=== PATIENT | female | born 1995 | race Caucasian/White ===

== ENCOUNTER 2018-04-03 17:48 | Inpatient (IN) | payer OTHER ==
[~2018-04-03] VITALS: Ht 165.1 cm; Wt 101.9 kg
[2018-04-03] VITALS (281 sets, daily range): BP systolic 118–135; BP diastolic 68–79; PULSE 80–98; TEMP 98.7; O2SAT 97–100
[2018-04-03 18:35] LABS: ARTERIAL BLD GAS TCO2 CT 27.5; ARTERIAL BLOOD GAS BASE EXCESS 2.7 (-2-2); ARTERIAL BLOOD GAS HCO3 26.3 meq/L (22-26); ARTERIAL BLOOD GAS PCO2 37.6 mmHg (35-45); ARTERIAL BLOOD GAS pH 7.46 (7.35-7.45)
[2018-04-03 19:06] LABS: BASO % 0.4 % (0.0-2.0); EOS % 0.1 % (0-4.0); GRAN # 4.3 (1.4-6.5); HEMATOCRIT 41.9 % (37.0-47.0); HEMOGLOBIN 14.6 g/dl (12.5-16.0); LYMPH # 2.5 (1.2-3.4); MEAN CELL VOLUME 88 fl (80.0-100.0); MEAN CORPUSCULAR HEMOGLOBIN 31 pg (27.0-31.0); MEAN CORPUSCULAR HGB CONC 35 g/dl (33.0-37.0); MEAN PLATELET VOLUME 10.7 fl (7.4-10.4); MONO # 0.7 (0.1-0.6); MONO % 9.2 % (1.7-9.3); PLATELET COUNT 222 K/mm3 (130-400); RED BLOOD COUNT 4.76 M/mm3 (4.10-5.30); REDCELL DISTRIBUTION WIDTH-CV 12.5 % (11.5-14.5)
[2018-04-03 19:14] LABS: ALBUMIN 3.8 gm/dL (3.5-5.0); BILIRUBIN,TOTAL 0.8 mg/dL (0.0-1.0); CALCIUM 8.6 mg/dL (8.4-10.2); CREATININE, serum 0.67 mg/dL (0.52-1.25); MAGNESIUM 2.4 mg/dL (1.6-2.3); PHOSPHOROUS 3.3 mg/dL (2.5-4.5); POTASSIUM 3.1 mmol/L (3.4-5.0); TOTAL PROTEIN 6.8 gm/dL (6.4-8.2)
[2018-04-03 19:17] LABS: INR 1.2 (0.8-3.0); PROTHROMBIN TIME 13.5 SECONDS (9.7-12.8)
[2018-04-03 19:20] LABS: PARTIAL THROMBOPLASTIN TIME 36.6 SECONDS (26.0-37.0)
[2018-04-03 21:18] LABS: ARTERIAL BLD GAS O2 SATURATION 97.6 % (92-100); ARTERIAL BLD GAS TCO2 CT 26.7; ARTERIAL BLOOD GAS BASE EXCESS 3.2 (-2-2); ARTERIAL BLOOD GAS HCO3 25.7 meq/L (22-26); ARTERIAL BLOOD GAS PCO2 32.7 mmHg (35-45); ARTERIAL BLOOD GAS PO2 98.7 mmHg (80-100); ARTERIAL BLOOD GAS pH 7.51 (7.35-7.45)
[2018-04-03 22:37] LABS: CREATININE, serum 0.65 mg/dL (0.52-1.25); MAGNESIUM 2.4 mg/dL (1.6-2.3); PHOSPHOROUS 3.6 mg/dL (2.5-4.5); POTASSIUM 3.3 mmol/L (3.4-5.0)
[2018-04-04] VITALS (1284 sets, daily range): BP systolic 110–130; BP diastolic 51–89; PULSE 80–120; TEMP 97.9–100.1; O2SAT 91–100
[2018-04-04 00:41] LABS: ARTERIAL BLD GAS O2 SATURATION 98.4 % (92-100); ARTERIAL BLD GAS TCO2 CT 28.2; ARTERIAL BLOOD GAS BASE EXCESS 2.6 (-2-2); ARTERIAL BLOOD GAS PCO2 40.7 mmHg (35-45); ARTERIAL BLOOD GAS PO2 140.6 mmHg (80-100); ARTERIAL BLOOD GAS pH 7.44 (7.35-7.45)
[2018-04-04 00:53] LABS: CREATININE, serum 0.66 mg/dL (0.52-1.25); MAGNESIUM 2.4 mg/dL (1.6-2.3); PHOSPHOROUS 3.6 mg/dL (2.5-4.5); POTASSIUM 3.4 mmol/L (3.4-5.0)
[2018-04-04 03:33] LABS: PH 9 (5-8); SQUAMOUS EPITHELIAL 0-2 /hpf; URINE APPEARANCE Hazy; URINE BACTERIA Rare /hpf; URINE BILIRUBIN Negative (NEGATIVE); URINE BLOOD Negative (NEGATIVE); URINE COLOR Yellow; URINE GLUCOSE Negative (NEGATIVE); URINE KETONE 2+ (NEGATIVE); URINE LEUKOCYTE ESTERASE Negative (NEGATIVE); URINE NITRATE Negative (NEGATIVE); URINE PROTEIN(semi-quant) 2+ (NEGATIVE); URINE UROBILINOGEN Negative (NEGATIVE)
[2018-04-04 03:37] LABS: COLLECTION METHOD CATHETER
[2018-04-04 04:13] LABS: ARTERIAL BLD GAS O2 SATURATION 98.2 % (92-100); ARTERIAL BLOOD GAS BASE EXCESS 5.8 (-2-2); ARTERIAL BLOOD GAS HCO3 31.4 meq/L (22-26); ARTERIAL BLOOD GAS PCO2 49.7 mmHg (35-45); ARTERIAL BLOOD GAS pH 7.42 (7.35-7.45)
[2018-04-04 04:47] LABS: BASO % 0.4 % (0.0-2.0); EOS % 0.3 % (0-4.0); GRAN # 4.5 (1.4-6.5); GRAN % 61.5 % (42.2-75.2); HEMATOCRIT 39.8 % (37.0-47.0); HEMOGLOBIN 13.5 g/dl (12.5-16.0); LYMPH % 27.8 % (20.0-51.0); MEAN CELL VOLUME 90 fl (80.0-100.0); MEAN CORPUSCULAR HEMOGLOBIN 31 pg (27.0-31.0); MEAN CORPUSCULAR HGB CONC 34 g/dl (33.0-37.0); MEAN PLATELET VOLUME 10.7 fl (7.4-10.4); MONO # 0.7 (0.1-0.6); MONO % 9.7 % (1.7-9.3); PLATELET COUNT 183 K/mm3 (130-400); RED BLOOD COUNT 4.43 M/mm3 (4.10-5.30); REDCELL DISTRIBUTION WIDTH-CV 12.9 % (11.5-14.5)
[2018-04-04 05:14] LABS: ALBUMIN 3.3 gm/dL (3.5-5.0); BILIRUBIN,TOTAL 0.4 mg/dL (0.0-1.0); CALCIUM 7.9 mg/dL (8.4-10.2); CREATININE, serum 0.66 mg/dL (0.52-1.25); MAGNESIUM 2.4 mg/dL (1.6-2.3); PHOSPHOROUS 3.6 mg/dL (2.5-4.5); POTASSIUM 3.2 mmol/L (3.4-5.0)
[2018-04-04 07:47] LABS: ARTERIAL BLD GAS O2 SATURATION 98.1 % (92-100); ARTERIAL BLD GAS TCO2 CT 33.1; ARTERIAL BLOOD GAS BASE EXCESS 5.9 (-2-2); ARTERIAL BLOOD GAS HCO3 31.5 meq/L (22-26); ARTERIAL BLOOD GAS PCO2 49.3 mmHg (35-45); ARTERIAL BLOOD GAS pH 7.42 (7.35-7.45)
[2018-04-04 07:48] LABS: ARTERIAL BLOOD GAS PO2 126.2 mmHg (80-100)
[2018-04-04 07:53] LABS: CREATININE, serum 0.65 mg/dL (0.52-1.25); POTASSIUM 3.2 mmol/L (3.4-5.0)
[2018-04-04] MEDS ORDERED: PRILOSEC10 MG PO (11:24)
[2018-04-04] MEDS ORDERED: PRENATAL 191 CTB PO (11:25)
[2018-04-04] MEDS ORDERED: EFFEXOR XR75 MG/CAP PO (11:26)
[2018-04-04 19:29] LABS: CALCIUM 8.1 mg/dL (8.4-10.2); CREATININE, serum 0.58 mg/dL (0.52-1.25); POTASSIUM 3.3 mmol/L (3.4-5.0)
[2018-04-05] VITALS (304 sets, daily range): BP systolic 115–124; BP diastolic 67–77; PULSE 70–85; TEMP 97.8–99.3; O2SAT 94–100
[2018-04-05 05:13] LABS: ARTERIAL BLD GAS O2 SATURATION 97.4 % (92-100); ARTERIAL BLD GAS TCO2 CT 25.6; ARTERIAL BLOOD GAS BASE EXCESS 0.1 (-2-2); ARTERIAL BLOOD GAS HCO3 24.4 meq/L (22-26); ARTERIAL BLOOD GAS PCO2 38.5 mmHg (35-45); ARTERIAL BLOOD GAS PO2 94.2 mmHg (80-100); ARTERIAL BLOOD GAS pH 7.42 (7.35-7.45)
[2018-04-05 06:04] LABS: BASO % 0.5 % (0.0-2.0); EOS # 0.1 (0.0-0.7); GRAN # 3.5 (1.4-6.5); GRAN % 55.1 % (42.2-75.2); HEMATOCRIT 37.4 % (37.0-47.0); HEMOGLOBIN 12.5 g/dl (12.5-16.0); LYMPH # 2.2 (1.2-3.4); MEAN CELL VOLUME 91 fl (80.0-100.0); MEAN CORPUSCULAR HEMOGLOBIN 31 pg (27.0-31.0); MEAN CORPUSCULAR HGB CONC 33 g/dl (33.0-37.0); MEAN PLATELET VOLUME 11.8 fl (7.4-10.4); MONO # 0.5 (0.1-0.6); MONO % 8.2 % (1.7-9.3); PLATELET COUNT 177 K/mm3 (130-400); REDCELL DISTRIBUTION WIDTH-CV 13.1 % (11.5-14.5)
[2018-04-05 06:13] LABS: ALBUMIN 3.2 gm/dL (3.5-5.0); BILIRUBIN,TOTAL 0.5 mg/dL (0.0-1.0); CALCIUM 8.3 mg/dL (8.4-10.2); CREATININE, serum 0.54 mg/dL (0.52-1.25); PHOSPHOROUS 3.5 mg/dL (2.5-4.5); TOTAL PROTEIN 5.9 gm/dL (6.4-8.2)
== END 2018-04-05 11:20 | disposition home or self-care (01) | DRG 917 ==
LOC: ICU 17:48
PROVIDERS: Internal Medicine Pulmonary Disease; Nurse Practitioner Family
PROC: 5A1935Z Respiratory Ventilation, Less than 24 Consecutive Hours (ICD-10-PCS; principal; 2018-04-03)
DX: T43.212A Poisoning by selective serotonin and norepinephrine reuptake inhibitors, intentional self-harm, initial encounter (principal); J96.01 Acute respiratory failure with hypoxia; F39 Unspecified mood [affective] disorder; E87.6 Hypokalemia
CPT/HCPCS: 99223-AI; 99239; J1650; J2060; J2250; J2704; J3480; J7030